=== PATIENT | female | born 2000 | race Two or more races ===

== ENCOUNTER 2022-07-26 12:33 | Emergency (ER) | payer OTHER ==
[~2022-07-26] VITALS: Ht 157.5 cm; Wt 48.6 kg
--- NOTE | 2022-07-26 13:00 | NUR ---
Patient sleeping, hard to aroused. Was able to provide date of , ht and weight but no other information. Will continue to monitor and mprovide care as needed.
[2022-07-26] MEDS ORDERED: IV NS 0.9% 1,000 ML BAG IV ONE (14:00)
--- NOTE | 2022-07-26 14:23 | NUR ---
patient awake alert oriented x4 , no signs and symptoms of distress. o2 sat 100% on room air. stable vital signs.
[2022-07-26] MEDS ORDERED: ONDANSETRON HCL/PF 4 MG/2 ML VIAL ONE (14:39)
[2022-07-26] MEDS ORDERED: ONDANSETRON HCL/PF - ER 4 MG/2 ML VIAL IV ONE (15:00)
--- NOTE | 2022-07-26 15:01 | NUR ---
PT CAN TOLERATED PO FLUIDS AT THIS MOMENT. NEEDS ATTENDED
[2022-07-26] MEDS ORDERED: IV NS 0.9% 1,000 ML IV ONE (15:30)
[2022-07-26] MEDS ORDERED: NALO4SPR BNOSTRILS (16:57)
[2022-07-26 17:08] VITALS: BP 98/67
== END 2022-07-26 17:09 | disposition home or self-care (01) ==
LOC: ER 12:38 → EDBD 12:38 → ER 17:09
DX: T40.411A Poisoning by fentanyl or fentanyl analogs, accidental (unintentional), initial encounter (principal); R11.10 Vomiting, unspecified; Y92.89 Other specified places as the place of occurrence of the external cause
CPT/HCPCS: 99283; 96374; 96361; 82962 ×2; J2405; J7030